=== PATIENT | female | born 1945 | race Caucasian/White ===

== ENCOUNTER → 2020-10-03 | Outpatient (CLI) | payer OTHER ==
[~2020-10-03] VITALS: Ht 160 cm; Wt 74.8 kg
[~2020-10-03] MED LIST: ACETAMINOPHEN325 MG PO; BENICAR40 MG PO; CARVEDILOL12.5 MG PO; CITRACAL + D M1 EACH PO; FAMCYCLOVIR 50500 M1 PO; LEVO-T75 MCG PO; NEURONTIN300 MG PO; NORVASC5 MG PO; PRAVASTATIN SOD20 MG PO; PRILOSEC OTC20 MG PO; ULTRAM 50MG TAB50 MG PO; ZYRTEC10 M2 PO
--- NOTE | 2020-10-03 15:28 | P ---
[facility] [place] [address] PROCEDURE REPORT Name: HARRIS PERERA Room #: REG [facility]#: [id number] Admission: 10/03/20 Attend Phys: Blayne Garay Discharge: Date of : 43 Report #: [id number] THIS REPORT FOR: cc: Yisel Coates MD, Jennifer L MD McElhinney, Christian C. MD ~ DATE OF SERVICE: 10/03/2020 PROCEDURE PERFORMED: Colonoscopy with biopsies. HISTORY OF PRESENT ILLNESS: The patient is a 75-year-old female with a history of anemia, reportedly with hemoglobin 9.5 recently. Upper endoscopy was just performed showing grade D severe esophagitis. No evidence of active bleeding; however, this is in spite of the patient being on daily Prilosec for the last several months. No family history of colon cancer. The patient reportedly had a colonoscopy approximately 4 years ago that was negative. She denies any obvious bright red blood per rectum or melena. DESCRIPTION OF PROCEDURE: The risks and benefits of the procedure were explained to the patient, those risks including but not limited to bleeding, perforation and the risk of sedation. She understood these risks and gave informed consent. Sedation was given using propofol per anesthesia. Next, a digital rectal exam was initially performed, which was normal. Next, using a standard Olympus colonoscope, the scope was placed in the patient's anus and advanced under direct vision to the cecum. The overall prep was good. The cecum and ileocecal valve were normal in appearance. The ascending, transverse and descending colon were normal. In the sigmoid colon, a 4 mm sessile polyp was noted. This was removed with cold forceps, otherwise normal. The rectal mucosa was normal. On retroflexion, small nonbleeding internal hemorrhoids were noted. The scope was then withdrawn and the procedure terminated. The patient tolerated the procedure well. IMPRESSION: 1. Small colonic polyp. 2. Small nonbleeding internal hemorrhoids. RECOMMENDATIONS: 1. Await biopsy results. 2. If polyps are hyperplastic, consider repeat colonoscopy in 10 years; if adenomatous polyp, repeat in 5 years. 3. No signs of bleeding today; however, the patient did have severe esophagitis on upper endoscopy. Plan is to increase her Prilosec to b.i.d., add Carafate for the next 2 weeks. At that point, would continue to observe and monitor her hemoglobin. If she continues to be anemic, consider Hemoccult testing stools at that point. [address] [address] PROCEDURE REPORT Name: HARRIS PERERA Room #: REG [facility]#: [id number] Admission: 10/03/20 Attend Phys: Blayne Garay Discharge: Date of : 43 Report #: [id number] Thank you for allowing me to participate in her care. <ELECTRONICALLY SIGNED> By: Blayne Donohue MD 10/03/20 1528 1125 1135 Blayne Donohue MD /ramón
--- NOTE | 2020-10-03 15:28 | P ---
[facility] [place] [address] PROCEDURE REPORT Name: HARRIS PERERA Room #: REG [facility]#: [id number] Admission: 10/03/20 Attend Phys: Blayne Garay Discharge: Date of : 43 Report #: [id number] THIS REPORT FOR: cc: Yisel Coates MD, Jennifer L MD McElhinney, Christian C. MD ~ DATE OF SERVICE: 10/03/2020 PROCEDURE PERFORMED: Upper endoscopy with biopsies. HISTORY OF PRESENT ILLNESS: The patient is a 75-year-old female with anemia, recent hemoglobin in the 9 range. The patient denies any obvious bright red blood per rectum or melena. She does report some indigestion, was started on Prilosec approximately a month ago. No Hemoccult testing. Colonoscopy reportedly 4 years ago, approximately, that was negative. No previous history of upper endoscopy. She denies any dysphagia. She denies any nausea or vomiting. Her weight has been stable. DESCRIPTION OF PROCEDURE: The risks and benefits of the procedure were explained to the patient, those risks including but not limited to bleeding, perforation and the risk of sedation. She understood these risks and gave informed consent. Sedation was given using propofol per anesthesia. Next, using a standard Olympus upper endoscope, the scope was placed in the patient's mouth and advanced under direct vision through the esophagus, stomach and into the second portion of the duodenum. The larynx was normal in appearance. The upper esophagus was normal. In the mid to distal esophagus, severe grade D erosive esophagitis was noted, possible short segment of Nelson's was also noted. Biopsies were obtained. Upon entering the stomach, a medium-sized hiatal hernia was noted. Overall, the gastric mucosa was normal. The pylorus was normal and patent. The duodenal bulb, first and second portion were all normal. Biopsies were obtained to rule out the possibility of celiac sprue. The scope was then withdrawn and the procedure terminated. The patient tolerated the procedure well. IMPRESSION: 1. Grade D erosive esophagitis. No active bleeding. 2. Hiatal hernia. 3. 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 RECOMMENDATIONS: 1. Await biopsy results. 2. We will increase Prilosec to b.i.d. and add liquid Carafate for the next 2 weeks. 3. We will proceed with colonoscopy next today. [address] [address] PROCEDURE REPORT Name: PERERAHARRIS L Room #: REG [facility]#: [id number] Admission: 10/03/20 Attend Phys: Blayne Garay Discharge: Date of : 43 Report #: [id number] Thank you for allowing me to participate in her care. <ELECTRONICALLY SIGNED> By: Blayne Donohue MD 10/03/20 1528 1055 1120 Blayne Donohue MD /nt
--- NOTE | 2020-10-08 16:06 | PATH ---
[facility] [address] [place] [address] PATHOLOGY RPT PROCEDURE Name: HARRIS PERERA Room #: REG [facility] [place].#: [id number] Admission: 10/03/20 Date of : 43 Discharge: Report #: [id number] Path Case #: [id number] [facility] Accession Number: [id number] . 01 Material submitted: . PART A: duodenum - BIOPSY DUODENAL RULE OUT SPRUE PART B: esophagus - BIOPSY DISTAL ESOPHAGUS R/O ROCHE'S. Modifiers: distal PART C: colon - BIOPSY SIGMOID COLON POLYP. Modifiers: sigmoid . 01 Clinical history: . LOW BLOOD COUNT, ANEMIA, ESOPHAGITIS, HIATAL HERNIA, SIGMOID COLON POLYP . 02 Diagnosis: A. Small bowel mucosa, duodenum to rule out sprue, endoscopic biopsy: - No diagnostic abnormalities present. - Negative for villous blunting or increase in intraepithelial lymphocytes. . B. Gastroesophageal mucosa, distal esophagus to rule out Roche's, endoscopic biopsy: - Specialized columnar (gastric-type mucosa) epithelium with intestinal metaplasia, consistent with Roche's metaplasia. - Negative for dysplasia. - Mild esophagitis with occasional eosinophils, and changes compatible with reflux esophagitis. . C. Polyp, sigmoid polyp, endoscopic biopsy: - Hyperplastic polyp. - Negative for dysplasia. . 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 02 Comment: The above diagnosis of Roche's esophagus is made due to presence of intestinal metaplasia and with the assumption that the biopsies were obtained from the columnar mucosa in the distal esophagus located at least 1 cm proximal to the top of the gastric folds as per the 2016 ACG guidelines. 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 02 Electronically signed: . Bethany Villa MD, Pathologist NPI- [id number] . 01 Gross description: . [address] [address] PATHOLOGY RPT PROCEDURE Name: HARRIS PERERA Room #: REG [facility]#: [id number] Admission: 10/03/20 Date of : 43 Discharge: Report #: [id number] Path Case #: [id number] A. Received in formalin labeled "Harris Perera, duodenal BX rule out sprue" are multiple birmingham-brown soft tissue fragments measuring in aggregate 0.8 x 0.6 x 0.1 cm. The specimen is submitted entirely in A1. . B. Received in formalin labeled "Perera, Harris, distal esophagus BX rule out Roche's" are multiple birmingham-brown soft tissue fragments measuring in aggregate 0.7 x 0.3 x 0.1 cm. The specimen is submitted entirely in B1. . C. Received in formalin labeled "Harris Perera, sigmoid BX colon polyp" are two birmingham-brown soft tissue fragments measuring in aggregate 0.6 x 0.2 x 0.1 cm. The specimen is submitted entirely in C1. ([facility]; 10/04/2020) [facility] 10/04/2020 1300 Local . 02 Pathologist provided ICD-10: K20.90, K63.5, D64.9, K44.9 . 02 CPT . 311673, 750163, 658039 Specimen Comment: A courtesy copy of this report has been sent to [phone] Specimen Comment: [id number] Specimen Comment: Report sent to / Performed at: 01 [facility] [address] [place] [address] [address], [place], [place] [id number] MD Nick Solis MD Phone: [phone] Performed at: [address] [id number] MD Bethany Villa MD Phone: [phone]
== END | disposition home or self-care (01) ==
LOC: GI 08:32
PROVIDERS: ATTEND Specialist
DX: D64.9 Anemia, unspecified (principal); K63.5 Polyp of colon; K22.70 Barrett's esophagus without dysplasia; K64.8 Other hemorrhoids; K21.00 Gastro-esophageal reflux disease with esophagitis, without bleeding; K44.9 Diaphragmatic hernia without obstruction or gangrene; I10 Essential (primary) hypertension; E78.5 Hyperlipidemia, unspecified; G47.30 Sleep apnea, unspecified; K21.9 Gastro-esophageal reflux disease without esophagitis; Z98.890 Other specified postprocedural states; Z79.899 Other long term (current) drug therapy; Z85.828 Personal history of other malignant neoplasm of skin; Z96.642 Presence of left artificial hip joint
CPT/HCPCS: 62110; 62900

== ENCOUNTER → 2021-10-23 | Outpatient (CLI) | payer OTHER ==
[~2021-10-23] VITALS: Ht 157.5 cm; Wt 69.4 kg
[~2021-10-23] MED LIST changes: +HYDROCORTISONE30 GM TOP; +MECLIZINE HCL25 MG PO; +OMEPRAZOLE 20 M20 M1 PO
--- NOTE | 2021-10-25 08:54 | P ---
[facility] [place] [address] PROCEDURE REPORT Name: HARRIS PERERA Room #: REG [facility]#: [id number] Admission: 10/23/21 Attend Phys: Blayne Garay Discharge: Date of : 43 Report #: [id number] THIS REPORT FOR: cc: Yisel Coates MD, Jennifer L MD McElhinney, Christian C. MD ~ cc: Yisel Coates MD DATE OF SERVICE: 10/23/2021 PROCEDURE PERFORMED: Upper endoscopy with biopsies. HISTORY OF PRESENT ILLNESS: The patient is a 76-year-old female with a history of gastroesophageal reflux disease and Nelson's esophagus. Last year, Nelson's was diagnosed for the first time showing no dysplasia. She is here for one-year followup. Last year, she had esophagitis despite being on daily PPI therapy. Therefore, we increased it to b.i.d. dosing. She denies any heartburn or dysphagia. DESCRIPTION OF PROCEDURE: The risks and benefits of the procedure were explained to the patient, those risks including but not limited to bleeding, perforation and the risk of sedation. She understood these risks and gave informed consent. Sedation was given using propofol per anesthesia. Next, using a standard Olympus upper endoscope, the scope was placed in the patient's mouth and advanced under direct vision through the esophagus, stomach and into the second portion of the duodenum. The upper and mid esophagus was normal in appearance. In the distal esophagus, a short segment of Nelson's was once again noted. Biopsies were obtained. No evidence of esophagitis. Upon entering the stomach, a small hiatal hernia was noted. Overall, the gastric mucosa was normal. The pylorus was normal and patent. The duodenal bulb, first and second portion were all normal. The scope was then withdrawn and the procedure terminated. The patient tolerated the procedure well. IMPRESSION: 1. Short segment Nelson's esophagus. 2. Hiatal hernia. 3. Otherwise, normal upper endoscopy. RECOMMENDATIONS: 1. Await biopsy results. 2. Likely repeat in 3 years depending on biopsy results. [facility] [address] [place] [address] PROCEDURE REPORT Name: HARRIS PERERA Room #: REG [facility]#: [id number] Admission: 10/23/21 Attend Phys: Blayne Garay Discharge: Date of : 43 Report #: [id number] Thank you for allowing me to participate in her care. <ELECTRONICALLY SIGNED> By: Blayne Donohue MD 10/25/21 0854 1043 1948 Blayne Donohue MD /nt
--- NOTE | 2021-10-25 19:07 | PATH ---
[facility] [address] [place] [address] PATHOLOGY RPT PROCEDURE Name: HARRIS PERERA Yon Room #: REG [facility] [place].#: [id number] Admission: 10/23/21 Date of : 43 Discharge: Report #: [id number] Path Case #: [id number] [facility] Accession Number: [id number] . 01 Material submitted: . esophagus - DISTAL ESOPHAGUS HX OF ROCHE'S. Modifiers: distal . 01 Clinical history: . ESOPHAGOGASTRODUODENOSCOPY HIATAL HERNIA . 02 Diagnosis: Esophagus "distal", biopsy: - Esophageal squamous and gastric cardia mucosa with reactive changes and intestinal metaplasia (Roche's esophagus). - Negative for dysplasia and malignancy. (JANUSZ:loraine; 10/25/2021) MBR 10/25/2021 1804 Local . 02 Electronically signed: . Abilio Cardenas MD, Pathologist NPI- [id number] . 01 Gross description: . Received in formalin labeled "Harris Perera, distal esophagus history of Roche's" are multiple birmingham-brown soft tissue fragments measuring in aggregate 0.7 x 0.3 x 0.1 cm. The specimen is submitted entirely in A1. ([facility]; 10/24/2021) [facility] 10/24/2021 1058 Local . 02 Pathologist provided ICD-10: K22.70 . 02 CPT . 131242 Specimen Comment: A courtesy copy of this report has been sent to [phone] Specimen Comment: [id number] Specimen Comment: Report sent to / DR NIXON Performed at: 01 [facility] [address] [id number] MD Nick Solis MD Phone: [phone] Performed at: 02 [facility] [address] [id number] MD Ben Goodwin MD Phone: [phone]
== END | disposition home or self-care (01) ==
LOC: GI 09:08
PROVIDERS: ATTEND Specialist
DX: K22.70 Barrett's esophagus without dysplasia (principal); K21.9 Gastro-esophageal reflux disease without esophagitis; K44.9 Diaphragmatic hernia without obstruction or gangrene; I10 Essential (primary) hypertension; E03.9 Hypothyroidism, unspecified; G47.30 Sleep apnea, unspecified; E78.5 Hyperlipidemia, unspecified; G47.33 Obstructive sleep apnea (adult) (pediatric); Z98.890 Other specified postprocedural states; Z79.899 Other long term (current) drug therapy; Z96.651 Presence of right artificial knee joint; Z20.822 Contact with and (suspected) exposure to COVID-19; Z96.643 Presence of artificial hip joint, bilateral; Z90.710 Acquired absence of both cervix and uterus
CPT/HCPCS: 62110; 62900